=== PATIENT | male | born 1985 | race Caucasian/White ===

== ENCOUNTER 2020-05-20 14:14 | Outpatient (CLI) | payer MEDICAID ==
[~2020-05-20] VITALS: Ht 180.3 cm; Wt 91.6 kg
[2020-05-20 14:29] VITALS: BP 121/63
[2020-05-20] MEDS ORDERED: ADDERAL20 MG ORAL (14:29)
--- NOTE | 2020-05-20 15:00 | Consultation ---
DATE OF CONSULTATION: 05/20/2020 CHIEF COMPLAINT: Feeling fullness in his throat. HISTORY OF PRESENT ILLNESS: This is a 35-year-old male. Apparently, he has been having this problem, has been seen by GI in October, was given a PPI without any significant improvement, was scheduled to have an endoscopy but insurance was changed and he was referred to us. PAST MEDICAL HISTORY: 1. ADHD. 2. Sleep apnea. PAST SURGICAL HISTORY: Hernia. MEDICATIONS: See medication reconciliation list. ALLERGIES: No known allergies. FAMILY HISTORY: No family history of GI malignancies. SOCIAL HISTORY: The patient drinks alcohol occasionally. Denies any tobacco or IV drug abuse. REVIEW OF SYSTEMS: A 10-point review of systems was performed and positive for solid dysphagia. PHYSICAL EXAMINATION: VITAL SIGNS: Temperature 96.9, blood pressure 122/63, pulse 61, respirations 20. HEENT: Normocephalic and atraumatic. Sclerae are anicteric. NECK: Supple. No evidence of obvious lymphadenopathy. CARDIOVASCULAR: Regular rate and rhythm. Plus S1 and S2. LUNGS: Clear to auscultation. ABDOMEN: Positive bowel sounds. Soft and nontender. No rebound. No guarding. No peritoneal sign. EXTREMITIES: No cyanosis, no clubbing, no edema. ASSESSMENT AND PLAN: The patient is a 35-year-old male with solid food dysphagia, not responding to PPI, needs an endoscopy. Plan to schedule when authorization is obtained. Bam Ruiz M.D. DR: Promise JOB#: [id number] CC:
== END 2020-05-20 16:14 | disposition home or self-care (01) ==
LOC: PAN 14:14
DX: R13.10 Dysphagia, unspecified (principal); G47.30 Sleep apnea, unspecified
CPT/HCPCS: 99203

== ENCOUNTER 2020-07-04 13:42 | Outpatient (CLI) | payer MEDICAID ==
[~2020-07-04 13:42] MED LIST: ADDERAL20 MG ORAL
[2020-07-04 13:56] VITALS: BP 144/66
== END 2020-07-04 15:42 | disposition home or self-care (01) ==
LOC: PAN 13:42
DX: R10.9 Unspecified abdominal pain (principal)
CPT/HCPCS: 99212